=== PATIENT | female | born 1975 | race Two or more races ===

== ENCOUNTER 2016-11-09 17:56 | Emergency (ER) | payer MEDICAID ==
[~2016-11-09] VITALS: Ht 152.4 cm; Wt 66.7 kg
--- NOTE | 2016-11-09 17:56 | NUR ---
PT. CAME TO ER C/O LOWER ABD SINCE THIS AM, 14 WEEKS , A1 FEBRILE SINCE LAST NIGHT. PLACED ON MONITOR. VSS. AWAITING MD ORDER
--- NOTE | 2016-11-09 18:20 | NUR ---
URINE SAMPLE COLLECTED SENT TO LAB
--- NOTE | 2016-11-09 18:20 | NUR ---
LAC#18 IV ACCESS. BLOOD SAMPLE COLLECTED SENT TO LAB
[2016-11-09] MEDS ORDERED: ONDANSETRON HCL/PF 4 MG/2 ML VIAL ONE (18:23)
[2016-11-09] MEDS ORDERED: IV NS 0.9% 1,000 ML BAG IV ONE (18:30)
[2016-11-09] MEDS ORDERED: ONDANSETRON HCL/PF 4 MG/2 ML VIAL IVP ONE (18:30)
[2016-11-09 18:31] LABS: BASOPHILS # (AUTO) 0.1 /CMM (0.0-0.2); BASOPHILS % (AUTO) 0.6 % (0.0-2.0); EOSINOPHILS # (AUTO) 0.2 /CMM (0.0-0.7); EOSINOPHILS % (AUTO) 1.6 % (0.0-6.0); HEMATOCRIT 37 % (33-45); HEMOGLOBIN 12.8 g/dL (11.5-14.8); LYMPHOCYTES # (AUTO) 2.2 /CMM (0.8-4.8); LYMPHOCYTES % (AUTO) 21.5 % (20.0-44.0); MEAN CORPUSCULAR HEMOGLOBIN 31 PG (26.0-33.0); MEAN CORPUSCULAR HGB CONC 35 g/dl (31.0-36.0); MEAN CORPUSCULAR VOLUME 89 fL (82-100); MONOCYTES # (AUTO) 0.4 /CMM (0.1-1.30); MONOCYTES % (AUTO) 4.3 % (2.0-12.0); NEUTROPHILS # (AUTO) 7.5 /CMM (1.8-8.9); PLATELET COUNT (AUTO) 262 /CMM (150-450); RDW COEFFICIENT OF VARIATION 12.1 (11.5-15.0); RED BLOOD CELL COUNT(AUTO) 4.14 MIL/uL (4.0-5.2); WHITE BLOOD COUNT (AUTO) 10.4 K/uL (4.3-11.0)
[2016-11-09 18:49] LABS: CALCIUM, SERUM 8.8 mg/dL (8.5-10.1); CREATININE 0.5 mg/dL (0.6-1.3); POTASSIUM 3.8 mmol/L (3.5-5.1)
--- NOTE | 2016-11-09 19:05 | NUR ---
ULTRASOUND AT BEDSIDE
--- NOTE | 2016-11-09 19:08 | NUR ---
REPORT GIVEN TO RUBIN BANERJEE FOR [facility]
[2016-11-09 19:45] LABS: APPEARANCE,URINE Clear (CLEAR); BILIRUBIN,URINE Negative (NEGATIVE); BLOOD, URINE Negative Ery/uL (NEGATIVE); COLOR,URINE Yellow (YELLOW); KETONES,URINE Negative (NEGATIVE); LEUKOCYTE ESTERASE ,URINE Negative (NEGATIVE); NITRITE, URINE Negative (NEGATIVE); PROTEIN,URINE Negative (NEGATIVE); UGLUCOSE Negative (NEGATIVE); UROBILINOGEN,URINE 0.2 EU/dL (0.2)
--- NOTE | 2016-11-09 20:10 | NUR ---
IV removed. Catheter intact and site benign. Pressure and 4x4 applied to site. No bleeding noted. Patient discharged to home in stable condition. Written and verbal after care instructions given. Patient verbalizes understanding of instruction. Patient is ambulatory with steady gait.
[2016-11-09 20:11] VITALS: BP 95/55
== END 2016-11-09 20:11 | disposition home or self-care (01) ==
LOC: ER 17:57
DX: O26.892 Other specified pregnancy related conditions, second trimester (principal); R10.30 Lower abdominal pain, unspecified; Z3A.14 14 weeks gestation of pregnancy
CPT/HCPCS: 36415; 76805; 80048; 81001; 85025; 96361; 96374; 99285; A4606; J2405; Z7610; 81000-TC

== ENCOUNTER 2018-08-14 13:32 | Emergency (ER) | payer SELFPAY ==
[~2018-08-14] VITALS: Ht 152.4 cm; Wt 63.5 kg
[2018-08-14 13:42] VITALS: BP 126/73
[2018-08-14] MEDS ORDERED: HYDROCODONE/APAP 5/325MG 1 EACH TABLET ONE (14:17)
[2018-08-14] MEDS ORDERED: IBUPROFEN 600 MG TABLET PO ONE ×2 (14:17→14:30)
[2018-08-14] MEDS ORDERED: CYCLOBENZAPRINE 10 MG TABLET ONE (14:17)
[2018-08-14] MEDS ORDERED: HYDROCODONE/APAP 5/325MG 1 EACH TABLET PO ONE (14:30)
[2018-08-14] MEDS ORDERED: CYCLOBENZAPRINE 10 MG TABLET PO ONE (14:30)
== END 2018-08-14 14:29 | disposition home or self-care (01) ==
LOC: ER 13:43
DX: S39.012A Strain of muscle, fascia and tendon of lower back, initial encounter (principal); S16.1XXA Strain of muscle, fascia and tendon at neck level, initial encounter; Z60.2 Problems related to living alone; V49.59XA Passenger injured in collision with other motor vehicles in traffic accident, initial encounter; Y93.89 Activity, other specified; Y92.413 State road as the place of occurrence of the external cause; Y99.8 Other external cause status
CPT/HCPCS: 99284; A4606

== ENCOUNTER 2019-03-30 19:34 | Emergency (ER) | payer MEDICAID ==
[~2019-03-30] VITALS: Ht 157.5 cm; Wt 63.5 kg
[2019-03-30] MEDS ORDERED: ACETAMINOPHEN 325 MG TABLET PO ONE (20:30)
[2019-03-30] MEDS ORDERED: IBUPROFEN 600 MG TABLET PO ONE ×2 (20:30→20:34)
--- NOTE | 2019-03-30 20:30 | NUR ---
BIBSELF FROM HOME. TO ER BED 10. AAOX4. NO RESP DISTRESS NOTED. AMBULATORY. C/O L ANKLE, L ELBOW AND L LOWER BACK PAIN. S/P SLIP AND FALL. PT RATE HER PAIN 03/14. PT DEINES HEAD TRAUMA, NO KO. ROM INTACT ON L LOWER EXT. MD WAS AT BEDSIDE FORE EVAL. ORDERS RECEIVED, NOTED AND CARRIED OUT.
[2019-03-30] MEDS ORDERED: ACETAMINOPHEN 325 MG TABLET ONE (20:34)
--- NOTE | 2019-03-30 21:57 | NUR ---
Patient discharged to home in stable condition. Written and verbal after care instructions given. Patient verbalizes understanding of instruction. Pt ambulatory with a steady gait
[2019-03-30 21:58] VITALS: BP 115/78
== END 2019-03-30 21:58 | disposition home or self-care (01) ==
LOC: ER 19:35
DX: S80.02XA Contusion of left knee, initial encounter (principal); S70.02XA Contusion of left hip, initial encounter; S70.12XA Contusion of left thigh, initial encounter; S30.0XXA Contusion of lower back and pelvis, initial encounter; S99.812A Other specified injuries of left ankle, initial encounter; Z60.2 Problems related to living alone; W01.0XXA Fall on same level from slipping, tripping and stumbling without subsequent striking against object, initial encounter; Y93.89 Activity, other specified; Y92.89 Other specified places as the place of occurrence of the external cause; Y99.8 Other external cause status
CPT/HCPCS: 72110-TC; 72170-TC; 73564-TC; 73610-TC